=== PATIENT | male | born 1965 ===

== ENCOUNTER 2022-05-23 12:50 | Outpatient (REF) | payer MEDICARE, MEDICAID, SELFPAY ==
--- NOTE | ~2022-05-23 | US_ITS ---
EXAMINATION: US VENOUS ULTRASOUND WITH DOPPLER LOWER EXTREMITY, LEFT CLINICAL INFORMATION: Pain COMPARISON: None TECHNIQUE: Ultrasound of the deep veins is performed from the hip to the calf with compression sonography and color and pulse Doppler assessment. Spectral analysis with color-flow imaging is performed. FINDINGS: There is normal venous compression and respiratory variation and augmented flow. The visualized common femoral vein, superficial femoral vein, profunda femoral vein, popliteal vein, and the trifurcation region shows no evidence of deep venous thrombosis. Deep venous reflux is noted in the popliteal vein. There is no significant popliteal fossa cyst. . US/US venous duplex LE LT IMPRESSION: No DVT demonstrated in the left lower extremity. Deep venous reflux noted in the popliteal vein.
== END 2022-05-23 12:51 | disposition home or self-care (01) ==
LOC: HO.US 12:50
PROVIDERS: Visit Provider Emergency Medicine
DX: M79.605 Pain in left leg (principal)
CPT/HCPCS: 93971

== ENCOUNTER 2024-05-27 14:21 | Emergency (ER) | payer MEDICARE, MEDICAID, SELFPAY ==
--- NOTE | ~2024-05-27 | XR_ITS ---
EXAMINATION: XR CHEST CLINICAL INFORMATION: flu x 2 weeks COMPARISON: None available. TECHNIQUE: 2 views of the chest were obtained. FINDINGS: No significant abnormality is noted involving the heart, lungs, mediastinum, bony thorax or soft tissues. XR/XR chest 2V IMPRESSION: Unremarkable chest examination. Electronically signed by: Marco Stauffer MD 05/27/2024 04:34 PM [facility]
--- NOTE | 2024-05-27 14:34 | ED.GENADULT ---
HPI - General Adult General Chief complaint: Upper Respiratory Symptoms Stated complaint: Flu symptoms Time Seen by Provider: 05/27/24 18:15 Source: patient Limitations: no limitations History of Present Illness ED Provider: Qian Royal PA-C HPI narrative: 59-year-old male with a history of asthma presents with cough and cold symptoms x2 weeks. Patient states he just returned from [place], he thinks a temperature change have caused his symptoms. Associated dry repetitive cough, expelling sputum at times. Denies shortness of breath, chest pain or fever. No GI symptoms. Related Data Previous Rx's ?Medication ?Instructions ?Recorded albuterol sulfate 90 mcg/actuation 2 puff inhalation Q4-6H PRN 05/27/24 aerosol inhaler shortness of breath or wheezing #8.5 grams prednisone 20 mg tablet 40 mg (2 x 20 mg) PO DAILY #8 tabs 05/27/24 Allergies Allergy/AdvReac Type Severity Reaction Status Date / Time aspirin [ASA] Allergy Swelling Verified 05/27/24 14:38 Penicillins Allergy Anaphylaxis Verified 05/27/24 14:38 shellfish derived [shellfish] Allergy Anaphylaxis Verified 05/27/24 14:38 Review of Systems Review of Systems: Yes all other systems are reviewed and are negative Constitutional: Constitutional: Denies fatigue and Denies fever(s) Cardiovascular: Cardiovascular: Denies chest pain and Denies dyspnea Respiratory: Respiratory: Reports chest congestion, Reports cough, Denies dyspnea and Denies wheezing Gastrointestinal: Gastrointestinal: Denies diarrhea, Denies nausea and Denies vomiting Endocrine: Endocrine: Denies fatigue Allergic/Immunologic: Allergic/Immunologic: Denies wheezing PMF Past Medical History Attestation statement: The following information was validated with the patient. Social History Social History Advance Directives: No Advance Directives Information Provided: No Physical Exam ED Vital Signs: Vital Signs - 24 hr 05/27/24 14:36 Temperature 98.6 F Pulse Rate 94 Respiratory Rate 16 Blood Pressure 137/86 Pulse Oximetry 96 Oxygen Delivery Method Room Air BMI result Body Mass Index 27.9 Const Other: Alert well-appearing Orientation/consciousness: patient oriented x3 Resp Other: Lungs are clear to auscultation no wheezing, active bronchospasm cough Cardio Other: Normal peripheral perfusion Skin Other: Warm dry no Neuro General: patient oriented x3, no focal motor deficits and CN's II-XI intact bilaterally Psych Other: Calm cough Course Course Course Narrative: This is a rapid medical exam performed by Beth Maldonado NP: Additional HPI, ROS, PE not included below will be deferred to primary provider. Patient is a 59-year-old male with history of KATHY presenting with complaint of cough, body aches for 2 weeks. Plan: viral serology, cxr Medical Decision Making Medical Decision Making [facility] Narrative: 59-year-old male with a history of asthma presents with cough and cold symptoms x2 weeks. Patient states he just returned from [place], he thinks a temperature change have caused his symptoms. Associated dry repetitive cough, expelling sputum at times. Denies shortness of breath, chest pain or fever. No GI symptoms. Problem: Asthma History: Per patient I have considered the following differential diagnoses: Asthma, bronchitis, viral syndrome, pneumonia Plan: Screening labs including chest x-ray and viral panel were obtained from triage, everything unremarkable. He has a slight asthma exacerbation. We will send with an inhaler, and steroid. I have independently reviewed the following tests: Labs: No leukocytosis, not anemic, no no electrolyte abnormality, viral panel negative Chest x-ray: XR/XR chest 2V IMPRESSION: Unremarkable chest examination. Electronically signed by: Marco Stauffer MD 05/27/2024 04:34 PM [facility] [place] Data 05/27/24 14:42 05/27/24 14:42 Labs: Lab Results 05/27/24 Range/Units 14:42 WBC 8.5 (4.8-10.8) X10*3/uL RBC 4.99 (4.60-5.80) X10*6/uL Hgb 16.0 (14.0-18.0) g/dl Hct 44.4 (42.0-52.0) % MCV 89.0 (80.0-98.0) fL MCH 32.1 (27.0-33.0) pg MCHC 36.0 (31.0-36.0) g/dl RDW 12.7 (11.0-16.0) % Plt Count 240 (160-400) X10*3/uL MPV 9.2 L (9.4-12.4) fL Immature Gran % (Auto) 0.4 (0.0-0.4) % Neut % (Auto) 61.5 (45-73) % Lymph % (Auto) 30.2 (20-40) % Ware % (Auto) 5.4 (2-11) % Eos % (Auto) 2.1 (0-4) % Baso % (Auto) 0.4 (0-2) % Lymph # (Auto) 2.6 (1.2-4.9) X10*3/uL Ware # (Auto) 0.5 (0.1-1.2) X10*3/uL Eos # (Auto) 0.2 (0.0-0.4) X10*3/uL Baso # (Auto) 0.0 (0.0-0.2) X10*3/uL Abs Immat Gran (auto) 0.03 (0.00-0.03) X10*3/uL Absolute Neuts (auto) 5.2 (2.0-8.3) x10*3/uL Absolute Nucleated RBC 0.000 (0.0-0.012) X10*3/uL Nucleated RBC % (auto) 0.0 (0.0-0.2) /100WBC Sodium 144 (135-145) mmol/L Potassium 4.1 (3.3-5.1) mmol/L Chloride 111 H (96-108) mmol/L Carbon Dioxide 26 (22-29) mmol/L Anion Gap 11 L (12-20) BUN 19 H (9-16) mg/dL Creatinine 0.95 (0.5-1.4) mg/dL Estim Creat Clear Calc 84.5 Estimated GFR > 60 Random Glucose 128 H (60-115) mg/dL Calcium 9.9 (8.4-10.2) mg/dL Total Bilirubin 1.0 (0.0-1.0) mg/dL AST 46 H (5-37) U/L ALT 71 H (0-40) U/L Alkaline Phosphatase 96 (39-117) U/L Total Protein 7.4 (6.5-8.0) g/dL Albumin 4.2 (3.5-5.0) g/dL Influenza Type A (PCR) NEGATIVE (Negative) Influenza Type B (PCR) NEGATIVE (Negative) RSV RNA Qual (PCR) NEGATIVE (Negative) SARS-CoV-2 RNA (RT-PCR) NEGATIVE (Negative) Discharge Plan Discharge Clinical Impression: Nonspecific syndrome suggestive of viral illness, Bronchospasm Patient Disposition: Home, Self-Care Instructions: Viral Syndrome (ED), Bronchospasm (ED) Additional Instructions: You likely have a virus causing your bronchospasm and other viral related symptoms. We screened you for influenza RSV and COVID, the panel was negative you do not have pneumonia on your chest x-ray. Use the albuterol inhaler as needed for bronchospasm cough and if you develop wheezing. Take the prednisone as directed, you do not need to take any more prednisone until tomorrow morning. Follow up with your primary care provider as needed. Prescriptions: New prednisone 20 mg tablet 40 mg PO DAILY Qty: 8 0RF albuterol sulfate 90 mcg/actuation HFA aerosol inhaler 2 puff inhalation Q4-6H PRN (Reason: shortness of breath or wheezing) Qty: 8.5 0RF Print Language: Somali
[2024-05-27 14:36] VITALS: BP 137/86; PULSE 94; RESP 16; TEMP 37; O2SAT 96; BMI 27.9
[2024-05-27 14:47] LABS: MANUAL DIFF FLAG NO
[2024-05-27 14:49] LABS: Basophils Percent Auto 0.4 % (0-2); Eosinophils Absolute Auto 0.2 X10*3/uL (0.0-0.4); Eosinophils Percent Auto 2.1 % (0-4); Hematocrit 44.4 % (42.0-52.0); Imm Gran Abs Auto 0.03 X10*3/uL (0.00-0.03); Imm Gran Pct Auto 0.4 % (0.0-0.4); Lymphocytes Absolute Auto 2.6 X10*3/uL (1.2-4.9); Lymphocytes Percent Auto 30.2 % (20-40); Mean Corpuscular Hemoglobin 32.1 pg (27.0-33.0); Mean Platelet Volume 9.2 fL (9.4-12.4); Monocytes Absolute Auto 0.5 X10*3/uL (0.1-1.2); Monocytes Percent Auto 5.4 % (2-11); Neutrophils Absolute Auto 5.2 x10*3/uL (2.0-8.3); Neutrophils Percent Auto 61.5 % (45-73); Platelet Count 240 X10*3/uL (160-400); Red Blood Count 4.99 X10*6/uL (4.60-5.80); Red Cell Distribution Width 12.7 % (11.0-16.0); White Blood Count 8.5 X10*3/uL (4.8-10.8)
[2024-05-27 15:05] LABS: Alanine Aminotransferase 71 U/L (0-40); Albumin Level 4.2 g/dL (3.5-5.0); Alkaline Phosphatase 96 U/L (39-117); Anion Gap 11 (12-20); Aspartate Amino Transferase 46 U/L (5-37); Blood Urea Nitrogen 19 mg/dL (9-16); Calcium 9.9 mg/dL (8.4-10.2); Carbon Dioxide 26 mmol/L (22-29); Chloride 111 mmol/L (96-108); Creatinine Clr Calc Pharmacy 84.5; Estimated Glomerular Filt Rate > 60; Glucose Random 128 mg/dL (60-115); Potassium 4.1 mmol/L (3.3-5.1); Sodium 144 mmol/L (135-145); Total Protein 7.4 g/dL (6.5-8.0)
[2024-05-27 15:33] LABS: Influenza A PCR NEGATIVE (Negative); Influenza B PCR NEGATIVE (Negative); Resp Syncy Virus RNA Qual PCR NEGATIVE (Negative); SARS COV2 PCR INHOUSE NEGATIVE (Negative)
[2024-05-27] MEDS: predniSONE 20 MG TABLET 40 MG PO (18:58)
[2024-05-27 19:00] VITALS: BP 137/86; PULSE 94; RESP 16; TEMP 37; O2SAT 96
== END 2024-05-27 19:03 | disposition home or self-care (01) ==
PROVIDERS: Registered Nurse Emergency; Emergency Provider Emergency Medicine
DX: J98.01 Acute bronchospasm (principal); R05.9 Cough, unspecified; B34.0 Adenovirus infection, unspecified; Z79.899 Other long term (current) drug therapy; Z03.818 Encounter for observation for suspected exposure to other biological agents ruled out
CPT/HCPCS: 0241U; 71046; 80053; 85025; 99282; 99283

== ENCOUNTER → 2024-05-27 14:37 | Outpatient (BNV) | payer MEDICARE, MEDICAID, SELFPAY | PROVIDERS: Visit Provider Radiology Diagnostic Radiology | DX: R05.9 Cough, unspecified (principal) | CPT/HCPCS: 71046 ==

== ENCOUNTER 2024-06-19 10:27 | Emergency (ER) | payer MEDICARE, MEDICAID, SELFPAY ==
[2024-06-19 10:51] VITALS: PULSE 70; RESP 16; TEMP 36.1; O2SAT 96; BMI 27.9
--- NOTE | 2024-06-19 13:22 | ED.SKABFB ---
HPI - Skin/Abscess/Foreign Bdy General Chief complaint: Skin/Abscess/Foreign Body Stated complaint: wart removal Time Seen by Provider: 06/19/24 13:20 Source: patient and old records reviewed Mode of arrival: ambulatory Limitations: no limitations History of Present Illness ED Provider: SAMPSON HPI narrative: 59 yo male with PMH of asthma here with c/o L 4th finger wart that keeps growing and he cannot handle it. He notes he has not tried any OTC and he has not seen his PCP, no redness or swelling he just hates it. MD complaint: other (L finger wart) Onset (ago): month(s) (6+) Location: L hand Severity: mild Quality: dull Pain Consistency: intermittent Relieving factors: none Exacerbating factors: palpation Context: none Associated symptoms: denies other symptoms Treatments prior to arrival: none Related Data Previous Rx's ?Medication ?Instructions ?Recorded albuterol sulfate 90 mcg/actuation 2 puff inhalation Q4-6H PRN 05/27/24 aerosol inhaler shortness of breath or wheezing #8.5 grams prednisone 20 mg tablet 40 mg (2 x 20 mg) PO DAILY #8 tabs 05/27/24 Allergies Allergy/AdvReac Type Severity Reaction Status Date / Time aspirin [ASA] Allergy Swelling Verified 06/19/24 10:52 Penicillins Allergy Anaphylaxis Verified 06/19/24 10:52 shellfish derived [shellfish] Allergy Anaphylaxis Verified 06/19/24 10:52 Review of Systems Review of Systems: Constitutional : No Fever, No Chills ENT/Mouth : No sore throat, No Rhinorrhea Eyes: No Eye Pain, No Swelling, No Redness Cardiovascular : No Chest Pain, No SOB Respiratory : No Cough, No Sputum Gastrointestinal : No Nausea, No Vomiting, No Diarrhea, No abdominal Pain Genitourinary : No Dysuria, No Hematuria Musculoskeletal : No joint pain, No Myalgias, No Joint Swelling Skin : pos Skin Lesion, positive skin rash Neuro : No Weakness, No Numbness, No Headache All other systems reviewed and are negative [facility] Past Medical History Attestation statement: The following information was validated with the patient. Source: old records reviewed Medical History (Updated 06/19/24 @ 14:12 by Sophie Morris DO) Asthma Social History Social History (Updated 06/19/24 @ 14:12 by Sophie Cana, DO) Patient Tobacco Use Status: Never used Tobacco Physical Exam Vital Signs: Vital Signs: Last Vital Signs Temp 96.9 F 06/19/24 10:51 Pulse 70 06/19/24 10:51 Resp 16 06/19/24 10:51 Pulse Ox 96 06/19/24 10:51 O2 Del Method Room Air 06/19/24 10:51 BMI result Body Mass Index 27.9 Appearance: Alert. Oriented X3. No acute distress. Eyes: Pupils equal, round and reactive to light. ENT: Pharynx normal. Neck: Normal inspection. Neck supple. CVS: Normal heart rate and rhythm. Pulses normal. Respiratory: No respiratory distress. Breath sounds normal. Abdomen: Soft and non-tender. Skin: Skin warm and dry. Normal skin color. L hand 4th digit dorsum small elevated commnon wart no signs of infection Extremities: No lower extremity edema. Neuro: Oriented X 3. No motor deficit. No sensory deficit. CN2-12 intact Medical Decision Making Medical Decision Making MDM Narrative: 59 yo male with presentation to the ED of likely common wart - there are no signs of infection and it is superficial. He has a PCP so given no signs of infection he can either go to PCP for freezing, compound W over the counter, or duct tape trick. He is going to try the duct tape. I gave him precautions to return for infection. Differential Diagnosis Differential Diagnoses: The differential diagnosis associated with the presentation includes common wart External Record Review External record reviewed: Outpatient record Prescription Management I considered prescription management with: Other Discharge Plan Discharge Clinical Impression: Wart of hand Patient Disposition: Home, Self-Care Instructions: Common Wart (ED) Additional Instructions: either coumpound W over the counter or use the duct tape trick for 2 weeks and keep it on all the time your family doctor can also likely freeze this off in the office. Prescriptions: No Action prednisone 20 mg tablet 40 mg PO DAILY Qty: 8 0RF albuterol sulfate 90 mcg/actuation HFA aerosol inhaler 2 puff inhalation Q4-6H PRN (Reason: shortness of breath or wheezing) Qty: 8.5 0RF Discharge Date/Time: 06/19/24 13:50 Print Language: Bhutanese
== END 2024-06-19 13:50 | disposition home or self-care (01) ==
LOC: HO.ED 13:24
PROVIDERS: Emergency Provider Emergency Medicine
DX: B07.8 Other viral warts (principal)
CPT/HCPCS: 99281; 99282